=== PATIENT | male | born 1950 | race Asian ===

== ENCOUNTER 2023-05-12 08:13 | Day surgery (SDC) | payer OTHER, SELFPAY ==
[2023-05-12] VITALS (7 sets, daily range): BP systolic 128–152; BP diastolic 66–75
--- NOTE | 2023-05-12 08:23 | W.SUR.PREOP ---
Pre-Operative Surgical Note
-
I have examined this patient prior to the performance of the scheduled procedure.
The patient's condition is unchanged from the time of the current History and
Physical and the patient is able to undergo the scheduled procedure.
[2023-05-12 08:54] LABS: Hematocrit 36.2 % (39.0-52.0); Hemoglobin 12.5 g/dL (13.0-18.0); Mean Corp Hgb Conc. 34.5 g/dL (33.0-37.0); Mean Corpuscular Hgb 33.1 pg (27.0-31.0); Mean Corpuscular Volume 95.8 fL (80.0-94.0); Mean Platelet Volume 13.9 fL (7.4-10.4); Platelet Count 86 10^3/uL (130-400); Red Blood Cell Count 3.78 10^6/uL (4.70-6.10); Red Cell Dist. Width 19.9 % (11.5-14.5); White Blood Cell Count 6.2 10^3/uL (4.8-10.8)
[2023-05-12 09:04] LABS: INR 1.64; PT 19.5 Sec (11.4-14.6)
[2023-05-12 09:05] LABS: APTT 41.7 Sec (23.4-35.0)
--- NOTE | 2023-05-12 09:30 | PTCARENOTE ---
Received a call from lab that chemistry specimen is hemolyzed and will need to be redrawn, pt already in procedure room, procedural room called and Carol BOGGS informed
--- NOTE | 2023-05-12 10:00 | W.SUR.POST ---
Surgical Immediate Post Op
Note
Pre Op Diagnosis: ESRD
Post Op Diagnosis: ESRD
Procedure Performed: RUE fistulagram, balloon angioplasty jimmy-anastomotic stenosis
Primary Surgeon: Amado
Anesthesia: local and sedation
Estimated Blood Loss: <2cc
Fluids: see anesthesia flow sheet
Drains/Shunts: none
Specimens/Cultures: none
Doppler/Duplex/Angio (Y/N): Y
Complications: none
Operative Findings: +thrill
[2023-05-12 10:10] LABS: Glucose - Point of Care 164 mg/dl (70-99)
--- NOTE | 2023-05-12 10:14 | OR.RPT ---
Operative Report
Operative Report
PROCEDURE DATE: 05/12/2023
Preoperative diagnosis: End-stage renal disease on hemodialysis, poorly maturing right upper extremity arteriovenous fistula.
Postoperative diagnosis: Same
Procedure:
1. Right upper extremity fistulogram and central venogram.
2. Balloon angioplasty of perianastomotic stenosis with 4 mm angioplasty balloon.
3. Supervision and interpretation.
Surgeon: Amado
Patent Agent: None
Complications: None
Anesthesia: Local, sedation
Fluoroscopy:
7.2 min
7 mGy
1.92 Gy.cm2
Indications for procedure:
End-stage renal disease on hemodialysis. Poorly maturing AV fistula. Concern for perianastomotic stenosis on ultrasound. Therefore brought for fistulogram. Risk/benefits/alternatives all fully discussed. Patient understood all wish to proceed.
Description of procedure:
Patient was identified, brought to the operating room. Placed on the table in the supine position. After the adequate administration of anesthesia, the patient was prepped and draped in the standard surgical fashion. A standard preoperative
timeout was undertaken and everybody was in agreement with the plan.
The right upper extremity radiocephalic arteriovenous fistula outflow vein was punctured in the proximal forearm just distal to the antecubital fossa and a peripheral facing direction with a micropuncture kit under direct duplex ultrasound guidance.
A 4 [place] sheath was then advanced over a 0.035 inch wire. Fistulogram demonstrated patent fistula at the site of the sheath entry, with brisk flow centrally.
At this point I used a Glidewire and a glide catheter to cannulate the perianastomotic region, and the catheter was advanced that section. Fistulogram from here demonstrated patent entire outflow vein in the forearm with no significant stenosis.
However at the perianastomotic region it was difficult to visualize but there appeared to be stenosis. I attempted multiple times to try to get my wire into the proximal radial artery proximal to the anastomosis. However despite multiple attempts
was unable to gain wire access into the proximal radial artery. Therefore I gained wire access into the radial artery distal to the anastomosis. Angiogram confirmed as in the true lumen. I then used a 4 mm angioplasty balloon after exchanging for
a 0.018 inch wire system. I performed angioplasty of the anastomotic region. Completion angiogram demonstrated excellent result. Brisk flow into the fistula outflow vein. I again tried to cannulate the proximal radial artery to get a better
image and potentially angioplasty proximally. However was unable to do so still. At this point central venogram was performed that demonstrated patent flow from the radiocephalic fistula outflow vein into the basilic vein at the antecubital fossa,
and then into the deep venous system. No central venous stenosis was identified. Right IJ tunneled dialysis catheter could be seen. At this point I was satisfied. Wires and catheters were withdrawn. 4-0 Monocryl pursestring stitch was placed
around the sheath entry site and manual pressure was applied as the stitch was tied down. Hemostasis was achieved.
The patient tolerated procedure well.
== END 2023-05-12 11:41 | disposition home or self-care (01) ==
LOC: CATH 08:13
PROVIDERS: ATTENDING PHYSICIAN Surgery Vascular Surgery; FAMILY PHYSICIAN Internal Medicine; OTHER PHYSICIAN Internal Medicine Cardiovascular Disease
DX: T82.858A Stenosis of other vascular prosthetic devices, implants and grafts, initial encounter (principal); Y83.2 Surgical operation with anastomosis, bypass or graft as the cause of abnormal reaction of the patient, or of later complication, without mention of misadventure at the time of the procedure; N18.6 End stage renal disease; Z99.2 Dependence on renal dialysis; Z79.01 Long term (current) use of anticoagulants
CPT/HCPCS: 36902; 82962; 85027; 85610; 85730; 86850; 86900; 86901; C1725; C1769; C1894; Q9967

== ENCOUNTER → 2023-06-09 09:51 | Outpatient (REF) | payer OTHER, SELFPAY | LOC: RAD 09:51 | PROVIDERS: ATTENDING PHYSICIAN Surgery Vascular Surgery; FAMILY PHYSICIAN Internal Medicine | DX: N18.6 End stage renal disease (principal) | CPT/HCPCS: 93990 ==